=== PATIENT | female | born 1985 | race Caucasian/White ===

== ENCOUNTER → 2017-10-08 08:38 | Outpatient (CLI) | payer OTHER, SELFPAY ==
--- NOTE | 2017-10-08 08:42 | CA_ITS ---
PROCEDURE: 2-D M-mode and color Doppler study INDICATIONS FOR THE TEST: Chest pain + COPD Heart Murmur Tobacco Smoking+ Palpitations+ Fatigue Syncope Edema Hypertension Diabetes Mellitus Rheumatic Fever SOB MCCANN Obesity Hyperlipidemia Family History HD Additional History SVT, PRE-OP ABLATION, CP PATIENT INFORMATION HEIGHT:68 WEIGHT:132 GENDER: Female B/P:128/80 2-D/M-MODE INTERPRETATION: 2-D MEASUREMENTS OBSERVED VALUES IN CMS Right Ventricular Dimension (RVDd) 1.4 Interventricular Septum (Thickness)(IVsd) 1.0 Left Ventricular Internal Dimensions(LVIDd) 5.2 Left Ventricular Posterior Wall (Thickness)(LVPWd) 0.6 Aortic Root 2.7 Aortic Cusp Separation 2.1 Left Atrial Dimensions (LAD) 3.1 2D 1. Left atrium is normal size, left ventricle is normal size, there is no concentric left ventricular hypertrophy, visually estimated ejection fraction of 55% with no obvious regional wall motion abnormality. 2. The right atrium and right ventricle are normal size and contractility. 3. The aortic valve is minimally thickened and fibrosed. 4. The mitral and tricuspid valve are grossly normal. 5. The pulmonic valve is poorly visualized. 6. No significant pericardial effusion noted. DOPPLER INTERROGATION: Doppler interrogation of the aortic, mitral and tricuspid valvular presence of trace aortic, mild mitral and tricuspid regurgitation, tricuspid and enteric velocity insufficient for calculation of the right ventricular systolic pressure, diastolic parameters are within normal range. CONCLUSION: 1. Normal left ventricular size, preserved left ventricular systolic function, visually estimated ejection fraction 55% with no obvious regional wall motion abnormality. Diastolic parameters are within normal range. 2. Trace aortic, mild mitral and tricuspid regurgitation. 3. No significant pericardial effusion noted.
== END ==
PROVIDERS: Family Provider Emergency Medicine; PCP Nurse Practitioner Family; Visit Provider Internal Medicine
DX: R00.2 Palpitations (principal); I47.1 Supraventricular tachycardia
CPT/HCPCS: 93306

== ENCOUNTER → 2017-11-10 11:43 | Outpatient (CLI) | payer OTHER, SELFPAY ==
[2017-11-10 12:08] LABS: Basophils # 0.1 K/mm3 (0-0.2); Basophils % 0.6 % (0.1-2.0); Eosinophils # 0.5 K/mm3 (0.0-0.4); Eosinophils % 6.5 % (0.1-12.0); Hematocrit 42.8 % (37.0-47.0); Lymphocytes # 2.1 K/mm3 (0.7-4.5); Lymphocytes % 27.4 K/mm3 (10-50); Mean Corpuscular HGB Conc 32.6 g/dL (31.8-35.4); Mean Corpuscular Hemoglobin 30.1 pg (27.0-31.2); Mean Corpuscular Volume 92.3 fl (81-99); Mean Platelet Volume 7.6 fl (7.4-10.4); Monocytes # 0.3 K/mm3 (0.1-1.0); Monocytes % 4.1 % (1.7-9.3); Neutrophils # 4.8 K/mm3 (1.8-7.8); Neutrophils % 61.5 % (37.0-80.0); Platelet Count 261 K/mm3 (142-424); Red Blood Count 4.63 M/mm3 (4.20-5.40); White Blood Count 7.8 K/mm3 (4.8-10.8)
[2017-11-10 12:11] LABS: Urine Pregnancy, HCG Qual. Negative (Negative)
--- NOTE | 2017-11-10 12:11 | XR_ITS ---
XR chest 2V HISTORY: ITS.REASON: SMOKER ORDERING PHYSICIAN: Karsten Joseph MD PATIENT AGE: 32 years COMPARISON: None FINDINGS: The cardiomediastinal silhouette and pulmonary vascularity are within normal limits. No lobar consolidation or collapse. There are multiple small calcified granulomas. There is a 9 mm nodular opacity in the right infrahilar region as seen on the frontal view. While this could represent a summation artifact or granuloma, one cannot exclude the possibility of a developing pulmonary nodule in this patient with positive smoking history. Consider CT scan for further evaluation. Cannot exclude an active process. No acute bony anomalies. IMPRESSION: 1. Old granulomatous disease. 2. Indeterminate 9 mm nodule in the right infrahilar region
[2017-11-10 13:09] LABS: Anion Gap 14.8 mEq/L (5-15); Blood Urea Nitrogen 16 mg/dL (7-18); Calcium 9.1 mg/dL (8.5-10.1); Carbon Dioxide 25 mmol/L (21.0-32.0); Chloride 105 mmol/L (98-107); Creatinine,Serum 0.73 mg/dL (0.55-1.02); Estimated Glomerular Filt Rate 92 ml/min (>60); GFR (African American) 112 ML/MIN (>60); Glucose 82 mg/dL (74-106); Potassium 3.8 mmoL/L (3.5-5.1); Sodium 141 mmol/L (136-145)
== END ==
PROVIDERS: Visit Provider Orthopaedic Surgery
DX: Z01.818 Encounter for other preprocedural examination (principal); S62.512A Displaced fracture of proximal phalanx of left thumb, initial encounter for closed fracture; S63.642A Sprain of metacarpophalangeal joint of left thumb, initial encounter
CPT/HCPCS: 36415; 71046; 80048; 81025; 85025; 93005

== ENCOUNTER → 2017-11-19 13:58 | Outpatient (CLI) | payer OTHER, SELFPAY ==
--- NOTE | 2017-11-19 14:01 | XR_ITS ---
XR finger LT min 2V HISTORY: ITS.REASON: left thumb/ 1 week post op ORDERING PHYSICIAN: Karsten Joseph MD PATIENT AGE: 32 years COMPARISON: Left hand 11/08/2017 and post surgery fluoroscopy 11/12/2017 FINDINGS: The small threaded screw is seen fixating the small corner fracture of the base of the proximal phalanx of the thumb in anatomic alignment. The first metacarpal distal phalanx appear intact. [place] casting is seen around the thumb and hand IMPRESSION: Satisfactory ORIF and casting small corner fracture base of proximal phalanx left thumb
== END ==
PROVIDERS: PCP Emergency Medicine; Visit Provider Orthopaedic Surgery
DX: Z09 Encounter for follow-up examination after completed treatment for conditions other than malignant neoplasm (principal)
CPT/HCPCS: 73140

== ENCOUNTER → 2017-12-03 10:03 | Outpatient (CLI) | payer OTHER, SELFPAY ==
--- NOTE | 2017-12-03 10:06 | XR_ITS ---
XR finger LT min 2V CLINICAL INDICATION: Follow-up fracture ITS.REASON: OUT OF CAST/ sp ORIF left thumb dos 11/12/17 ORDERING PHYSICIAN: Karsten Joseph MD PATIENT AGE: 32 years Comparison: 11/19/2017 FINDINGS: The cast has been removed. There is an oblique screw through the base of the proximal phalanx of the thumb stabilizing the transverse fracture at that region. Fracture lines are once again noted although somewhat less apparent. There remains good alignment IMPRESSION: Good alignment status post ORIF proximal phalanx fracture of the thumb
== END ==
PROVIDERS: Visit Provider Orthopaedic Surgery
DX: S62.502A Fracture of unspecified phalanx of left thumb, initial encounter for closed fracture (principal)
CPT/HCPCS: 73140

== ENCOUNTER 2017-12-03 11:01 | Outpatient (RCR) | payer OTHER, SELFPAY | END 2017-12-03 11:02 | disposition home or self-care (01) | LOC: OT 11:01 | PROVIDERS: Family Provider Emergency Medicine; PCP Emergency Medicine; Visit Provider Orthopaedic Surgery | DX: Z46.9 Encounter for fitting and adjustment of unspecified device; S62.502A Fracture of unspecified phalanx of left thumb, initial encounter for closed fracture | CPT/HCPCS: 97760 ==

== ENCOUNTER → 2017-12-06 08:05 | Outpatient (CLI) | payer OTHER, SELFPAY ==
--- NOTE | 2017-12-06 08:06 | CT_ITS ---
CT chest wo con HISTORY: Tobacco use, abnormal chest x-ray, solitary pulmonary nodule ITS.REASON: Abnormal CXR, smoker ORDERING PHYSICIAN: SKY Posey PATIENT AGE: 32 years COMPARISON: 11/10/2017 Technique: Axial images obtained. Sagittal and coronal reformatted images are also generated and reviewed. All CT scans at the facility use one or more dose reduction, viz: automated exposure control; ma/kV adjustment per patient size (including targeted exams where dose is matched to indication; i.e. head); or iterative reconstruction technique. FINDINGS: There are scattered small bilateral axillary lymph nodes measuring up to 13 x 11 mm in the right axilla. There is increased density in the anterior mediastinum consistent with residual findings tissue. No mediastinal or hilar adenopathy. Calcified nodes are present in the subcarinal region and anmol. Normal heart size. There are scattered calcified granulomata. No suspicious pulmonary nodules are evident. The nodular density noted in the right hilum on the radiograph was likely due to summation artifact from overlying vessels. Upper abdominal images are unremarkable. No acute bony anomalies. IMPRESSION: No acute finding. No suspicious pulmonary nodules. Multiple calcified granulomas and calcified lymph nodes consistent with old granulomatous disease
== END ==
PROVIDERS: Family Provider Emergency Medicine; PCP Emergency Medicine; Visit Provider Physician Assistant
DX: R93.8 Abnormal findings on diagnostic imaging of other specified body structures (principal)
CPT/HCPCS: 71250

== ENCOUNTER → 2017-12-23 12:48 | Outpatient (CLI) | payer OTHER, SELFPAY ==
--- NOTE | 2017-12-23 12:52 | XR_ITS ---
XR finger LT min 2V Ordering Physician: Karsten Joseph MD Patient Age: 32 years: Female HISTORY: ITS.REASON: sp ORIF LT thumb/ out of splint TECHNIQUE: 3 views left thumb COMPARISON :12/03/2017 left thumb FINDINGS A single oblique screw is evident entering from the proximal anterior/ulnar corner of the proximal phalanx of the thumb. It passes obliquely into the base of the thumb to stabilize stabilizes small corner fracture here. Appearance unchanged since prior studies. Stable position of screw and osseous elements. No lucency or fracture otherwise IMPRESSION: Stable screw fixation proximal of the corner fracture at base of proximal phalanx thumb
== END ==
PROVIDERS: PCP Emergency Medicine; Visit Provider Orthopaedic Surgery
DX: Z09 Encounter for follow-up examination after completed treatment for conditions other than malignant neoplasm (principal)
CPT/HCPCS: 73140

== ENCOUNTER 2018-01-04 12:44 | Outpatient (RCR) | payer OTHER, SELFPAY ==
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
== END 2018-01-04 12:45 | disposition home or self-care (01) ==
LOC: OT 12:44
PROVIDERS: Family Provider Emergency Medicine; PCP Emergency Medicine; Visit Provider Orthopaedic Surgery
DX: S62.502A Fracture of unspecified phalanx of left thumb, initial encounter for closed fracture (principal)
CPT/HCPCS: 97166

== ENCOUNTER → 2018-08-10 17:23 | Outpatient (CLI) | payer OTHER, SELFPAY ==
[2018-08-13 03:44] LABS: Neisseria gonorrhoeae, NAA Negative (Negative)
== END ==
PROVIDERS: Visit Provider Nurse Practitioner Obstetrics & Gynecology
DX: Z72.51 High risk heterosexual behavior (principal)
CPT/HCPCS: 87491; 87591

== ENCOUNTER → 2018-08-15 18:43 | Outpatient (CLI) | payer OTHER, SELFPAY ==
[2018-08-15 18:57] LABS: Basophils % 0.5 % (0.1-2.0); Eosinophils # 0.6 K/mm3 (0.0-0.4); Eosinophils % 7.9 % (0.1-12.0); Hematocrit 40.5 % (37.0-47.0); Hemoglobin 13.4 g/dL (12.2-16.2); Lymphocytes # 2.4 K/mm3 (0.7-4.5); Lymphocytes % 32.9 % (10-50); Mean Corpuscular HGB Conc 33.1 g/dL (31.8-35.4); Mean Corpuscular Hemoglobin 31.1 pg (27.0-31.2); Mean Corpuscular Volume 93.8 fl (81-99); Mean Platelet Volume 8.2 fl (7.4-10.4); Monocytes # 0.5 K/mm3 (0.1-1.0); Monocytes % 6.3 % (1.7-9.3); Neutrophils # 3.8 K/mm3 (1.8-7.8); Neutrophils % 52.4 % (37.0-80.0); Platelet Count 251 K/mm3 (142-424); Red Blood Count 4.32 M/mm3 (4.20-5.40); Red Cell Distribution Width 12.4 % (11.5-17.5); White Blood Count 7.3 K/mm3 (4.8-10.8)
[2018-08-15 19:19] LABS: Alanine Aminotransferase 15 U/L (12-78); Albumin Level 4.1 gm/dL (3.4-5.0); Albumin/Globulin Ratio 1.3 (1.1-1.8); Alkaline Phosphatase 47 U/L (46-116); Aspartate Amino Transferase 13 U/L (15-37); Bilirubin,Total 0.5 mg/dL (0.2-1.0); Blood Urea Nitrogen 14 mg/dL (7-18); Calcium 9.1 mg/dL (8.5-10.1); Carbon Dioxide 26 mmol/L (21.0-32.0); Chloride 104 mmol/L (98-107); Chol/HDL Ratio 2.9 (1-3.5); Cholesterol 110 mg/dL (140-200); Creatinine,Serum 0.74 mg/dL (0.55-1.02); Estimated Glomerular Filt Rate 91 ml/min (>60); GFR (African American) 110 ML/MIN (>60); Globulin 3.1 gm/dl (1.3-3.2); Glucose 86 mg/dL (74-106); HDL Cholesterol 38 mg/dL (29-89); LDL Cholesterol 49 mg/dL (0-130); Sodium 140 mmol/L (136-145); T4 (Thyroxine) 8.5 ug/dl (4.7-13.3); Thyroid Stimulating Hormone 2.27 uIU/ml (0.358-3.740); Total Protein,Serum 7.2 gm/dL (6.4-8.2); Triglycerides 117 mg/dL (30-200); VLDL Cholesterol 23 mg/dL (0-40)
[2018-08-17 07:55] LABS: Vitamin D 25 Hydroxy 34.6 ng/mL (30.0-100.0)
[2018-08-17 08:46] LABS: Vitamin B12 412 pg/mL (232-1245)
== END ==
PROVIDERS: Visit Provider Physician Assistant
DX: R53.83 Other fatigue (principal)
CPT/HCPCS: 80053; 80061; 82607; 82652; 84436; 84443; 85025

== ENCOUNTER → 2019-02-20 14:26 | Outpatient (CLI) | payer OTHER, SELFPAY ==
[2019-02-20 14:59] LABS: Basophils % 0.5 % (0.1-2.0); Eosinophils # 0.6 K/mm3 (0.0-0.4); Hematocrit 35.4 % (37.0-47.0); Hemoglobin 11.4 g/dL (12.2-16.2); Lymphocytes # 2.1 K/mm3 (0.7-4.5); Lymphocytes % 36.7 % (10-50); Mean Corpuscular HGB Conc 32.3 g/dL (31.8-35.4); Mean Corpuscular Hemoglobin 29.7 pg (27.0-31.2); Mean Platelet Volume 7.2 fl (7.4-10.4); Monocytes # 0.3 K/mm3 (0.1-1.0); Neutrophils # 2.6 K/mm3 (1.8-7.8); Neutrophils % 46.8 % (37.0-80.0); Platelet Count 252 K/mm3 (142-424); Red Blood Count 3.85 M/mm3 (4.20-5.40); Red Cell Distribution Width 12.1 % (11.5-17.5); White Blood Count 5.6 K/mm3 (4.8-10.8)
[2019-02-20 15:20] LABS: INR 1.01 (0.9-1.1); Prothrombin Time 10.5 seconds (9.4-11.8)
== END ==
PROVIDERS: Visit Provider Nurse Practitioner Obstetrics & Gynecology
DX: R23.8 Other skin changes (principal)
CPT/HCPCS: 36415; 85025; 85610; 85730

== ENCOUNTER → 2019-07-17 13:21 | Outpatient (CLI) | payer OTHER, SELFPAY ==
[2019-07-17 13:46] LABS: Basophils # 0.1 K/mm3 (0-0.2); Basophils % 0.8 % (0.1-2.0); Eosinophils # 0.5 K/mm3 (0.0-0.4); Eosinophils % 8.7 % (0.1-12.0); Hematocrit 35.8 % (37.0-47.0); Hemoglobin 12.1 g/dL (12.2-16.2); Lymphocytes # 1.8 K/mm3 (0.7-4.5); Lymphocytes % 28.7 % (10-50); Mean Corpuscular HGB Conc 33.9 g/dL (31.8-35.4); Mean Corpuscular Hemoglobin 29.5 pg (27.0-31.2); Mean Corpuscular Volume 87.2 fl (81-99); Mean Platelet Volume 7.9 fl (7.4-10.4); Monocytes # 0.4 K/mm3 (0.1-1.0); Neutrophils # 3.4 K/mm3 (1.8-7.8); Neutrophils % 55.7 % (37.0-80.0); Platelet Count 245 K/mm3 (142-424); Red Blood Count 4.11 M/mm3 (4.20-5.40); Red Cell Distribution Width 12.3 % (11.5-17.5); White Blood Count 6.1 K/mm3 (4.8-10.8)
--- NOTE | 2019-07-17 14:15 | US_ITS ---
PROCEDURE: US TRANSVAGINAL CLINICAL INDICATION: LLQ pain COMPARISON: No exams were available for comparison FINDINGS: UTERUS: 8.7 x 6cmx 5cm with a combined endometrial thickness of 9.2mm LEFT OVARY: [id number] with a volume of 10.1ml. RIGHT OVARY: 4cmx [id number] with a volume of 15ml. No abnormal adnexal mass or fluid collection is apparent. There are small nabothian cysts of the cervix. IMPRESSION: Nabothian cysts of the cervix otherwise no pathology demonstrated. Dictated by: Feng Lyn 07/17/2019 17:16 Electronically signed by Feng Lyn in [facility] 07/17/2019 17:16
--- NOTE | 2019-07-17 14:15 | CT_ITS ---
PROCEDURE: CT ABDOMEN PELVIS WO CON CLINICAL INDICATION: LLQ pain, LUQ swelling COMPARISON: ABDPELW/O CT ABD PELVIS W/O CONTRAST from 09/06/2013 TECHNIQUE: Axial images obtained with sagittal and coronal reformats. All CT scans at the facility use one or more dose reduction, viz: automated exposure control, ma/kV adjustment per patient size (including targeted exams where dose is matched to indication, i.e. head), or iterative reconstruction technique. FINDINGS: LOWER THORAX: No acute finding there are calcified granulomas in the lung bases3 ABDOMEN & PELVIS: There is an 8 millimeter hypodensity in the left liver image 17 series 3 not significantly changed from the previous exam and probably benign. Additionally there are 2 new hypodensities in the lateral liver dome measuring 7.5 and 5 millimeters image 8 series 3. These are too small to definitively characterize. The liver, spleen, pancreas, adrenal glands, and kidneys show no acute finding. No intestinal obstruction or free air. No evidence of appendicitis or diverticulitis. The uterus is enlarged and there is a bulky uterine cervix and there is poor delineation of the structures from the ovaries. Fluid-filled loops of bowel in the pelvis are also noted. Pelvic ultrasound could further evaluate if desired. No discrete ovarian masses demonstrated. There is possible enlargement of right ovary. No abnormal fluid collection, or focal inflammatory change of the pelvis. No acute bony anomalies. IMPRESSION: No acute finding. Bulky relatively enlarged uterus and uterine cervix and possibly right ovary. Relatively conglomerate soft tissue density in the pelvis. Ultrasound could further evaluate. Three separate hypodense liver lesions 1 unchanged from the previous exam and 2 of which appear new from the previous exam. They are too small to definitively characterize. Dictated by: Feng Lyn 07/17/2019 15:36 Electronically signed by Feng Lyn in [facility] 07/17/2019 15:36
[2019-07-17 14:42] LABS: HCG Qualitative, Serum Negative (Negative)
[2019-07-17 14:54] LABS: Alanine Aminotransferase 12 U/L (9-52); Albumin/Globulin Ratio 1.5 (1.1-1.8); Alkaline Phosphatase 40 U/L (46-116); Anion Gap 12.1 mEq/L (5-15); Aspartate Amino Transferase 10 U/L (15-37); Bilirubin,Total 0.6 mg/dL (0.2-1.0); Blood Urea Nitrogen 13 mg/dL (7-18); Calcium 8.7 mg/dL (8.5-10.1); Carbon Dioxide 27 mmol/L (21.0-32.0); Chloride 109 mmol/L (98-107); Estimated Glomerular Filt Rate 96 ml/min (>60); GFR (African American) 117 ML/MIN (>60); Globulin 2.6 gm/dl (1.3-3.2); Glucose 89 mg/dL (74-106); Potassium 4.1 mmoL/L (3.5-5.1); Sodium 144 mmol/L (137-145); Thyroid Stimulating Hormone 1.67 uIU/ml (0.358-3.740); Total Protein,Serum 6.6 g/dL (6.4-8.2)
== END ==
PROVIDERS: PCP Physician Assistant; Visit Provider Physician Assistant
DX: R10.32 Left lower quadrant pain (principal)
CPT/HCPCS: 36415; 74176; 76830; 80053; 84443; 84703; 85025

== ENCOUNTER → 2019-12-27 09:27 | Outpatient (CLI) | payer OTHER, SELFPAY | PROVIDERS: PCP Physician Assistant; Visit Provider Nurse Practitioner Obstetrics & Gynecology | DX: N60.19 Diffuse cystic mastopathy of unspecified breast (principal) ==

== ENCOUNTER → 2020-01-03 09:28 | Outpatient (CLI) | payer OTHER, SELFPAY ==
--- NOTE | 2020-01-03 09:30 | US_ITS ---
PROCEDURE: US BREAST LT COMPLETE CLINICAL INDICATION: mass in left breast COMPARISON: US BL US BREAST-LT from 11/30/2013 FINDINGS: Patient reports a palpable nodule in the upper left breast. No sonographic correlate evident at the region of the palpable area of concern. There is a small 4 mm cyst at the nipple region at 10 o'clock. No solid lesions are demonstrated. IMPRESSION: Small cyst at 10 o'clock otherwise negative left breast ultrasound. If there is indeed a palpable nodule then, would recommend mammogram for further evaluation. Dictated b Reynaldo Turner MD 01/05/2020 11:00 Reynaldo Turner MD in [facility] 01/05/2020 11:00
== END ==
PROVIDERS: PCP Physician Assistant; Visit Provider Nurse Practitioner Obstetrics & Gynecology
DX: N63.20 Unspecified lump in the left breast, unspecified quadrant (principal)
CPT/HCPCS: 76641

== ENCOUNTER → 2020-08-07 13:45 | Outpatient (CLI) | payer OTHER, SELFPAY ==
[2020-08-07 13:58] LABS: Alanine Aminotransferase 8 U/L (12-78); Albumin Level 4.4 g/dl (3.5-5.0); Albumin/Globulin Ratio 1.4 (1.1-1.8); Alkaline Phosphatase 50 U/L (38-126); Anion Gap 12.2 mEq/L (5-15); Aspartate Amino Transferase 21 U/L (14-36); Bilirubin,Total 0.9 mg/dl (0.2-1.3); Blood Urea Nitrogen 15 mg/dl (7-17); Calcium 9.8 mg/dl (8.4-10.2); Carbon Dioxide 25 mmol/L (22.0-30.0); Chloride 106 mmol/L (98-107); Chol/HDL Ratio 2.7 (1-3.5); Cholesterol 129 mg/dl (140-200); Estimated Glomerular Filt Rate 96 ml/min (>60); GFR (African American) 116 ML/MIN (>60); Globulin 3.1 g/dL (1.3-3.2); Glucose 92 mg/dl (74-100); HDL Cholesterol 48 mg/dl (40-60); Potassium 4.2 mmoL/L (3.5-5.1); Sodium 139 mmol/L (136-145); Total Protein,Serum 7.5 g/dl (6.3-8.2); Triglycerides 88 mg/dl (30-150); VLDL Cholesterol 18 mg/dL (0-40)
[2020-08-07 14:09] LABS: Direct LDL Cholesterol 52.68 mg/dL (100-129)
[2020-08-07 14:15] LABS: 25-OH Vitamin D, Total 32.2 ng/mL (30-100)
[2020-08-07 14:16] LABS: T4 (Thyroxine) 10.7 ug/dl (5.53-11.0)
[2020-08-07 14:26] LABS: Basophils % 0.6 % (0.1-2.0); Eosinophils # 0.5 K/mm3 (0.0-0.4); Eosinophils % 6.6 % (0.1-12.0); Hematocrit 38.6 % (37.0-47.0); Hemoglobin 12.4 g/dL (12.2-16.2); Lymphocytes % 29.1 % (10-50); Mean Corpuscular HGB Conc 32.2 g/dL (31.8-35.4); Mean Corpuscular Hemoglobin 29.7 pg (27.0-31.2); Mean Corpuscular Volume 92.1 fl (81-99); Mean Platelet Volume 8.4 fl (7.4-10.4); Monocytes # 0.4 K/mm3 (0.1-1.0); Monocytes % 5.4 % (1.7-9.3); Neutrophils # 4.1 K/mm3 (1.8-7.8); Neutrophils % 58.3 % (37.0-80.0); Platelet Count 259 K/mm3 (142-424); Red Blood Count 4.19 M/mm3 (4.20-5.40); Red Cell Distribution Width 12.9 % (11.5-17.5)
[2020-08-07 14:29] LABS: Thyroid Stimulating Hormone 2.14 uIU/mL (0.465-4.68)
== END ==
PROVIDERS: Visit Provider Nurse Practitioner Family
DX: R10.9 Unspecified abdominal pain (principal); Z00.00 Encounter for general adult medical examination without abnormal findings
CPT/HCPCS: 80053; 80061; 82306; 84436; 84443; 85025; 87086

== ENCOUNTER → 2020-08-28 13:48 | Outpatient (CLI) | payer OTHER, SELFPAY ==
--- NOTE | 2020-08-28 | US_ITS ---
PROCEDURE: US BREAST LT COMPLETE CLINICAL INDICATION: Lump COMPARISON: No exams were available for comparison FINDINGS: At 1 to 2 o'clock position near the nipple there is a anechoic lesion measuring 0.4 x 0.2 centimeters, likely represents a cyst. Mildly dilated duct is noted in the left breast is noted. At the site of pain near the nipple at 7 to 8 o'clock position, no focal mass lesions. Mild prominent fibroglandular tissue is noted. Mildly dilated ducts noted in the retroareolar region. Axillary lymph nodes are noted measuring up to 1.3 x 0.8 centimeters, demonstrates fatty hilum. IMPRESSION: No suspicious findings. Prominent ducts. Please see diagnostic mammogram report of the same date for further recommendations. Dictated by: Teresa Joseph 08/29/2020 07:40 Teresa Joseph in [facility] 08/29/2020 07:40
--- NOTE | 2020-08-28 13:48 | MM_ITS ---
PROCEDURE: MM DIG MAMM DX UNILAT LT CAD Digital Breast Tomosynthesis Included CLINICAL INDICATION: lump COMPARISON: No exams were available for comparison TECHNIQUE: Standard CC, MLO and spot compression images and 3D Tomosynthesis was obtained. R2 CAD reviewed. FINDINGS: The breasts is heterogeneously dense, may obscure small masses. At the site of marker placement, no evidence of suspicious mass lesions noted. Spot compression images of the area of interest demonstrate no focal discrete masses. No other mass lesion, suspicious calcification or architectural distortion is noted. Benign appearing calcifications noted in the left breast. Corresponding ultrasound demonstrates no focal suspicious lesions. IMPRESSION: No suspicious mass lesions. Probably benign finding. BI-RAD Category: 3 Probably Benign Finding Short Term Follow-up FOLLOW-UP: 6M 6Month Follow-up (A letter has been sent to the patient regarding results of the study.) Dictated by: Teresa Joseph 08/29/2020 07:38 Teresa Joseph in [facility] 08/29/2020 07:38
== END ==
PROVIDERS: PCP Physician Assistant; Visit Provider Physician Assistant
DX: N63.20 Unspecified lump in the left breast, unspecified quadrant (principal)
CPT/HCPCS: 76641; 77061; 77065; G0279

== ENCOUNTER → 2020-09-11 17:26 | Outpatient (CLI) | payer OTHER, SELFPAY | PROVIDERS: Visit Provider Nurse Practitioner Obstetrics & Gynecology | DX: N39.0 Urinary tract infection, site not specified (principal) | CPT/HCPCS: 87086; 87088; 87186 ==

== ENCOUNTER → 2021-02-20 17:33 | Outpatient (CLI) | payer OTHER, SELFPAY | PROVIDERS: PCP Emergency Medicine; Visit Provider Nurse Practitioner | DX: Z20.822 Contact with and (suspected) exposure to COVID-19 (principal) | CPT/HCPCS: C9803; U0003; U0005 ==

== ENCOUNTER → 2021-05-12 11:40 | Outpatient (CLI) | payer OTHER, SELFPAY | PROVIDERS: PCP Physician Assistant; Visit Provider Nurse Practitioner | DX: U07.1 COVID-19 (principal) | CPT/HCPCS: C9803; U0003; U0005 ==

== ENCOUNTER → 2022-03-13 13:51 | Outpatient (CLI) | payer OTHER, SELFPAY ==
--- NOTE | 2022-03-13 13:56 | MM_ITS ---
PROCEDURE INFORMATION: Exam: US Left Breast, Complete MG Left Diagnostic Breast Tomosynthesis Exam date and time: 03/13/2022 1:51 PM Age: 36 years old Clinical indication: Short-term follow-up for probable cyst in the left breast at 1 o'clock, from 08/29/2020 and concern for left breast lump in the upper outer quadrant. No family history of breast cancer. TECHNIQUE: Imaging protocol: Complete ultrasound of all four quadrants of the Left breast and the retroareolar regions, including ultrasound of the axilla when performed. Left Diagnostic tomosynthesis and 2D mammography including computer-aided detection (CAD) when performed. Unilateral or bilateral exam. Triangular marker placed at area of concern. No spot compressions submitted. COMPARISON: 1. MG MM DIG MAMM DX UNILAT LT CAD 08/28/2020 2:00 PM 2. US BREAST LT COMPLETE 08/28/2020 2:34 PM 3. US BREAST LT COMPLETE 01/03/2020 9:39 AM FINDINGS: MAMMOGRAPHY: Breast composition: The breasts are heterogeneously dense, which may obscure small masses. Mass: None. Architectural distortion: None. Calcifications: No suspicious calcifications. Asymmetric density: None. Skin thickening: None. Axillary adenopathy: None. Other: No mammographic findings related to the triangular palpable marker; however, this is in the posterior 3rd of the upper outer quadrant and may not be fully included in the CC projection. ULTRASOUND: Left sonography, all 4 quadrants, retroareolar and axilla. No sonographic region is indicated as corresponding to the area of palpable concern. Two findings at 1 o'clock 2 cm from the nipple, probably complicated cluster of cysts measuring 0.8 x 0.7 x 0.3 cm and a simple cyst measuring 0.4 cm (which appears unchanged from 08/28/2020). At 9 o'clock 2 cm from the nipple, probably complicated cluster of cysts measuring 0.4 by 0.3 x 0.4 cm. Sonographically unremarkable left axillary lymph node. IMPRESSION: Patient to be recalled for left diagnostic spot compression in the CC and MLO projections at the area of palpable concern as well as targeted sonography indicating area of palpable concern. Several probably benign complicated cysts noted at 1 o'clock and 9 o'clock, suggest six-month follow-up targeted sonography unless otherwise clinically indicated. The simple 0.4 cm cyst at 1 o'clock, reported on 08/29/2020, appears stable. ASSESSMENT: BI-RADS Category 0: Incomplete- Need Additional Imaging Evaluation and/or Prior Mammograms for Comparison
== END ==
PROVIDERS: PCP Physician Assistant; Visit Provider Nurse Practitioner Obstetrics & Gynecology
DX: R92.8 Other abnormal and inconclusive findings on diagnostic imaging of breast (principal)
CPT/HCPCS: 76641; 77061; 77065; G0279

== ENCOUNTER → 2022-03-23 13:51 | Outpatient (CLI) | payer OTHER, SELFPAY ==
--- NOTE | 2022-03-23 13:52 | MM_ITS ---
PROCEDURE INFORMATION: Exam: US Left Breast Limited MG Left Diagnostic Breast Tomosynthesis Exam date and time: 03/23/2022 2:13 PM Age: 36 years old Clinical indication: Palpable abnormality in the left breast TECHNIQUE: Imaging protocol: Limited ultrasound of Left breast with image documentation, including axilla when performed. Exam focused on the search and evaluation for mass. Left Diagnostic tomosynthesis and 2D mammography including computer-aided detection (CAD) when performed. Unilateral or bilateral exam. COMPARISON: US BREAST LT COMPLETE 03/13/2022 2:52 PM FINDINGS: MAMMOGRAPHY: Digital diagnostic spot compression views of the left breast and 90 degree lateral view of the left breast demonstrate normal overlapping fibroglandular structures without persistent mass or asymmetry identified. ULTRASOUND: Sonographic images of the left upper outer quadrant where the patient reports a palpable abnormality do not demonstrate any solid or cystic masses. No architectural distortion or acoustical shadowing. IMPRESSION: Palpable abnormality in the left breast corresponds both mammographically and sonographically to normal fibroglandular structures. There is no mammographic evidence of malignancy. Further evaluation of a palpable abnormality should be based on clinical grounds regardless of radiographic findings or lack thereof. Annual bilateral mammographic screening is recommended to commence at the age of 40 unless otherwise clinically indicated. ASSESSMENT: BI-RADS Category 1: Negative
== END ==
PROVIDERS: PCP Physician Assistant; Visit Provider Nurse Practitioner Obstetrics & Gynecology
DX: R92.8 Other abnormal and inconclusive findings on diagnostic imaging of breast (principal)
CPT/HCPCS: 77061; 77065; G0279